=== PATIENT | female | born 1995 | race African-American/Black ===

== ENCOUNTER 2018-05-15 15:17 | Emergency (ER) | payer SELFPAY ==
[2018-05-15 15:26] VITALS: BP 122/68
--- NOTE | 2018-05-15 15:36 | UC ---
Respiratory Complaint HPI - HPI Summary HPI Summary: This patient is a 22 year old F presenting to [facility] [place] with a chief complaint of a white bump on the R side of her tonsil. The patient rates the pain 8/10 in severity. Patient reports body aches starting last night, swollen glands, "feeling cold," and a sore throat. Patient denies cough and any nasal congestion. Patient reports no PMHx. She has a PSHx of a . She smokes but does not drink alcohol or use any other substances. - History of Current Complaint Chief Complaint: UCRespiratory Stated Complaint: SORE THROAT Time Seen by Provider: 05/15/18 15:24 Hx Obtained From: Patient Hx Last Menstrual Period: 04/17/2018 Onset/Duration: Still Present Severity Initially: Severe Severity Currently: Severe Pain Intensity: 8 Pain Scale Used: 0-10 Numeric - Allergies/Home Medications Allergies/Adverse Reactions: Allergies Allergy/AdvReac Type Severity Reaction Status Date / Time Penicillins Allergy Hives Verified 05/15/18 15:22 Home Medications: Home Medications Ibuprofen [Motrin Ib] 400 mg PO Q6HR PRN 05/15/18 [History Confirmed 05/15/18] PMH/Surg Hx/FS Hx/Imm Hx Endocrine History: Diabetes - Denies diabetes Cardiovascular History: Cardiac Disease - Denies CAD - Surgical History Surgical History: Yes Surgery Procedure, Year, and Place: c section x1 - Family History Known Family History: Positive: Hypertension - Social History Occupation: Unemployed Lives: With Family Alcohol Use: None Substance Use Type: None Smoking Status (MU): Current Every Day Smoker Amount Used/How Often: 1/2 ppd Review of Systems Constitutional: Other - Body aches starting last night, "feeling cold" ENT: Sore Throat, Other - Swollen glands. Denies nasal congestion. Respiratory: Cough - Denies cough All Other Systems Reviewed And Are Negative: Yes Physical Exam - Summary Physical Exam Summary: VITAL SIGNS: Reviewed. GENERAL: Patient is a well-developed and nourished FEMALE who is lying comfortable in the stretcher. Patient is not in any acute respiratory distress. HEAD AND FACE: Normocephalic EYES: PERRLA, EOMI x 2. EARS: Hearing grossly intact. MOUTH: Oropharynx within normal limits. Tonsillar Erythema. Swollen tonsil with white discharge NECK: Supple, trachea is midline, no adenopathy, no JVD, no carotid bruit. CHEST: Symmetric, no tenderness at palpation LUNGS: Clear to auscultation bilaterally. No wheezing or crackles. CVS: Regular rate and rhythm, S1 and S2 present, no murmurs or gallops appreciated. ABDOMEN: Soft, non-tender. Bowel sounds are normal. No abdominal abnormal pulsations. EXTREMITIES: Full ROM in all major joints, no edema, no cyanosis or clubbing. NEURO: Alert and oriented x 3. No acute neurological deficits. Speech is normal and follows commands. SKIN: Dry and warm Triage Information Reviewed: Yes Vital Signs: Initial Vital Signs Temp 99.1 F 05/15/18 15:20 Pulse 85 05/15/18 15:20 Resp 18 05/15/18 15:20 BP 122/68 05/15/18 15:20 Pulse Ox 98 05/15/18 15:20 Vital Signs Reviewed: Yes Diagnostic Evaluation - Laboratory O2 Sat by Pulse Oximetry: 98 Respiratory Course/Dx - Course Course Of Treatment: Patient is a 22-year-old female with chief complaint of sore throat. Rapid strep positive. Patient was given a prescription for azithromycin since the patient is allergic to penicillin. Patient was recommended to go to the ER if the patient develops any difficulty swallowing, swelling of the tongue or lips. Patient understands and agrees. - Differential Dx/Diagnosis Provider Diagnoses: Strep pharyngitis Discharge - Sign-Out/Discharge Documenting (check all that apply): Patient Departure - D/C All imaging exams completed and their final reports reviewed: No Studies - Discharge Plan Condition: Stable Disposition: HOME Prescriptions: Azithromycin TAB* [Zithromax TAB (Z-SUMI) 250 mg #6 tabs] 2 tab PO .TODAY, THEN 1 DAILY #1 sumi Patient Education Materials: Strep Throat (ED) Referrals: [facility] [place] [facility] REFERR[facility] [Outside] No Primary Care Phys,NOPCP [Primary Care Provider] - Additional Instructions: Take medications as instructed and adhere to plan Take Acetaminophen or ibuprofen for pain or fever Increase your fluid intake Return to the or go to the emergency department if symptoms worsen Follow-up with primary care physician in next 2-3 days - Billing Disposition and Condition Condition: STABLE Disposition: Home - Attestation Statements Document Initiated by Scribe: Yes Documenting Scribe: Jose Vasquez Provider For Whom Scribe is Documenting (Include Credential): MD Kaur Bowden Attestation: I, Jose Vasquez, scribed for Carlos Eduardo Montemayor MD on 05/15/18 at 1611. Scribe Documentation Reviewed: Yes Provider Attestation: The documentation as recorded by the scribeJose accurately reflects the service I personally performed and the decisions made by me, Carlos Eduardo Montemayor MD
== END 2018-05-15 15:45 | disposition home or self-care (01) ==
LOC: UCEAST 15:17
DX: J02.0 Streptococcal pharyngitis (principal); Z88.0 Allergy status to penicillin; F17.210 Nicotine dependence, cigarettes, uncomplicated
CPT/HCPCS: 87651; 99212; G0463

== ENCOUNTER 2019-01-28 17:08 | Emergency (ER) | payer SELFPAY ==
[2019-01-28 17:25] VITALS: BP 135/58
--- NOTE | 2019-01-28 17:30 | UC ---
General HPI - HPI Summary HPI Summary: Pleasant 23 yo female presents c/o 4-5 days progressive cough, sinus pressure and congestion. No fever / chills. Has had hx of similar in the past ( bronchitis). No hemoptysis. No sob except with cough. No rash. No sore throat except with cough. No GI / issues. No - History of Current Complaint Chief Complaint: UCRespiratory Stated Complaint: URI Time Seen by Provider: 01/28/19 17:29 Hx Obtained From: Patient Hx Last Menstrual Period: 01/20/19 Pain Intensity: 10 - Allergy/Home Medications Allergies/Adverse Reactions: Allergies Allergy/AdvReac Type Severity Reaction Status Date / Time Penicillins Allergy Hives Verified 01/28/19 17:25 Home Medications: Home Medications Dm/P-Ephed/Acetaminoph/Doxylam [Rafaela Huntington Plus Severe 10-12.5-20-650 mg] 1 pow PO 01/28/19 [History] PMH/Surg Hx/FS Hx/Imm Hx Previously Healthy: Yes - Surgical History Surgical History: Yes Surgery Procedure, Year, and Place: c section x1 - Family History Known Family History: Positive: Hypertension - Social History Alcohol Use: None Substance Use Type: None Smoking Status (MU): Light Every Day Tobacco Smoker Type: Cigarettes Amount Used/How Often: 1/2 ppd Review of Systems All Other Systems Reviewed And Are Negative: Yes Constitutional: Positive: Fatigue Skin: Positive: Negative Eyes: Positive: Negative ENT: Positive: Nasal Discharge, Sinus Congestion Respiratory: Positive: Cough Cardiovascular: Positive: Negative Gastrointestinal: Positive: Negative Genitourinary: Positive: Negative Motor: Positive: Negative Neurovascular: Positive: Negative Musculoskeletal: Positive: Negative Neurological: Positive: Negative Psychological: Positive: Negative Is Patient Immunocompromised?: No Physical Exam Triage Information Reviewed: Yes Appearance: Well-Appearing, Well-Nourished Vital Signs: Initial Vital Signs Temp 96.8 F 01/28/19 17:22 Pulse 68 01/28/19 17:22 Resp 18 01/28/19 17:22 BP 135/58 01/28/19 17:22 Pulse Ox 100 01/28/19 17:22 Vital Signs Reviewed: Yes Eye Exam: Normal ENT: Positive: Pharyngeal erythema - mild post redness, no sores / exudates, Nasal congestion, Nasal drainage, Other - R cerumen impaction full. L TM dull, blas Neck exam: Normal Neck: Positive: Supple, Nontender, No Lymphadenopathy Respiratory Exam: Other - + rhonchorus cough spasmodic. + exp wheeze Respiratory: Positive: No respiratory distress, No accessory muscle use Cardiovascular Exam: Normal Cardiovascular: Positive: RRR, No Murmur, Pulses Normal, Brisk Capillary Refill Abdominal Exam: Normal Abdomen Description: Positive: Nontender Musculoskeletal Exam: Normal Musculoskeletal: Positive: Strength Intact, ROM Intact, No Edema Neurological Exam: Normal - grossly intact Psychological Exam: Normal Skin Exam: Normal - no visible or reported rash Course/Dx - Course Course Of Treatment: Reviewed coa / tx plan. Cerumen cleared by RN. Questions as posed answered to the best of my ability. - Diagnoses Provider Diagnosis: Bronchitis, Cerumen impaction Discharge - Sign-Out/Discharge Documenting (check all that apply): Patient Departure All imaging exams completed and their final reports reviewed: No Studies - Discharge Plan Condition: Stable Disposition: HOME Prescriptions: Albuterol HFA INHALER* [Ventolin HFA Inhaler*] 1 - 2 puff INH Q4H PRN #1 mdi PRN Reason: Wheezing Azithromyxin SUMI (NF) [Z-Sumi (Zithromax) 250 mg tabs #6] 2 tab PO .TODAY, THEN 1 DAILY #6 tab Benzonatate CAP* [Tessalon 100 MG CAP*] 100 mg PO TID PRN #30 cap PRN Reason: Cough Patient Education Materials: Bronchiolitis (ED), How to Stop Smoking (ED), Cerumen Impaction (ED), Upper Respiratory Infection (ED) Referrals: [facility] [place] [facility] [Outside] No Primary Care Phys,NOPCP [Primary Care Provider] - Additional Instructions: Follow up with a primary care phyisican as soon as you are able. Seek medical attention for any worse or new problems. - Billing Disposition and Condition Condition: STABLE Disposition: Home
== END 2019-01-28 17:58 | disposition home or self-care (01) ==
LOC: UCEAST 17:08
DX: J40 Bronchitis, not specified as acute or chronic (principal); H61.21 Impacted cerumen, right ear; Z88.0 Allergy status to penicillin; F17.210 Nicotine dependence, cigarettes, uncomplicated
CPT/HCPCS: 99213; G0463

== ENCOUNTER 2019-02-07 10:43 | Emergency (ER) | payer SELFPAY ==
[2019-02-07 11:17] VITALS: BP 137/74
--- NOTE | 2019-02-07 11:25 | UC ---
Throat Pain/Nasal Darvin HPI - HPI Summary HPI Summary: Patient is a 23-year-old female who presents to the urgent care with chief complaint of sore throat, difficulty swallowing, unable to swallow not even liquids at this time, and she is been drooling. She also reports she is having fevers and not feeling well for the last couple days. Patient has no other complaints. - History of Current Complaint Chief Complaint: UCGeneralIllness Stated Complaint: SORE THROAT Hx Obtained From: Patient Hx Last Menstrual Period: 01/21/19 Pain Intensity: 10 - Allergies/Home Medications Allergies/Adverse Reactions: Allergies Allergy/AdvReac Type Severity Reaction Status Date / Time Penicillins Allergy Hives Verified 02/07/19 12:06 Home Medications: Home Medications Ibuprofen TAB* [Motrin TAB* 400 MG] 400 mg PO Q6H PRN 02/07/19 [History Confirmed 02/07/19] PMH/Surg Hx/FS Hx/Imm Hx Previously Healthy: Yes Respiratory History: Asthma - Surgical History Surgical History: Yes Surgery Procedure, Year, and Place: c section x1 - Family History Known Family History: Positive: Hypertension - Social History Alcohol Use: None Substance Use Type: None Smoking Status (MU): Light Every Day Tobacco Smoker Type: Cigarettes Amount Used/How Often: 1/2 ppd Household Exposure Type: Cigarettes Review of Systems All Other Systems Reviewed And Are Negative: Yes Constitutional: Positive: Fever, Chills Skin: Positive: Negative Eyes: Positive: Negative ENT: Positive: Sore Throat Respiratory: Positive: Negative Cardiovascular: Positive: Negative Gastrointestinal: Positive: Negative Genitourinary: Positive: Negative Motor: Positive: Negative Neurovascular: Positive: Negative Musculoskeletal: Positive: Negative Neurological: Positive: Negative Psychological: Positive: Negative Is Patient Immunocompromised?: No Physical Exam - Summary Physical Exam Summary: Gen.: Patient is an obese female in some distress secondary to drooling and unable to swallow. Patient is sitting comfortably on the stretcher. Head: Normacephalic and atraumatic Eyes: PERRLA, EOMI x2. Ears: Right ear canal and TM WNL and Left ear canal and TM WNL Nose and mouth: Positive pharyngeal erythema and tonsilar swelling with exudate. She is drooling. Neck: Supple, Positive bilateral submandibular and anterior cervical lymphadenopathy. No JVD Lungs: CTA B/L CVS: S1 & S2 present. No murmurs appreciated. ABDOMEN: Soft NT w/ positive BS. EXT: FROM x 4 NEURO: A+O X 3. Triage Information Reviewed: Yes Vital Signs: Initial Vital Signs Temp 99.4 F 02/07/19 11:12 Pulse 99 02/07/19 11:12 Resp 22 02/07/19 11:12 BP 137/74 02/07/19 11:12 Pulse Ox 100 02/07/19 11:12 Throat Pain/Nasal Course/Dx - Course Course Of Treatment: He since that the patient has pharyngitis and tonsillitis. Blood pulses are very swollen and the airways is slightly compromise. The patient is drooling and unable to swallow. Therefore we obtained an IV access in the urgent care IV fluids were given and decadron and the patient will be transferred to the emergency department via ambulance. Rapid strep is positive. - Differential Dx/Diagnosis Provider Diagnosis: Strep pharyngitis Discharge - Sign-Out/Discharge Documenting (check all that apply): Patient Departure All imaging exams completed and their final reports reviewed: No Studies - Discharge Plan Condition: Stable Disposition: TRANS HIGHER LVL OF CARE FAC Patient Education Materials: Pharyngitis (ED) Referrals: No Primary Care Phys,NOPCP [Primary Care Provider] - - Billing Disposition and Condition Condition: STABLE Disposition: Trans Higher Lvl of Care Fac
[2019-02-07] MEDS ORDERED: Dexamethasone IV* 4 MG/ML 1 ML (4 MG) IV SLOW PU ONE (11:31)
== END 2019-02-07 11:45 | disposition short-term general hospital (02) ==
LOC: UCEAST 10:43
DX: J02.0 Streptococcal pharyngitis (principal); Z88.0 Allergy status to penicillin; F17.210 Nicotine dependence, cigarettes, uncomplicated
CPT/HCPCS: 87651; 96374; 99213; G0463; J1100

== ENCOUNTER 2020-01-09 08:25 | Emergency (ER) | payer SELFPAY ==
[2020-01-09 09:45] VITALS: BP 123/77
== END 2020-01-09 10:02 | disposition left against medical advice (07) ==
LOC: UCEAST 08:25
DX: J34.89 Other specified disorders of nose and nasal sinuses (principal); Z53.21 Procedure and treatment not carried out due to patient leaving prior to being seen by health care provider

== ENCOUNTER 2021-09-22 05:26 | Inpatient (IN) ==
[2021-09-22 06:41] LABS: Urine Benzodiazepine Screen None Detected (None Detect); Urine Cannabinoids Screen None Detected (None Detect); Urine Opiates Screen None Detected (None Detect)
[2021-09-22] MEDS ORDERED: Buffered Lidocaine 1% SYRIN 1 ml INTRADERM ONE (07:16)
[2021-09-22] MEDS ORDERED: Lactated Ringers 1000 ml BAG 1,000 ML IV ONE (07:16)
[2021-09-22] MEDS ORDERED: ceFOXitin 2 GM IVPREMIX 2 GM/50 ML BAG IVPB ONE (07:16)
[2021-09-22] MEDS ORDERED: Albuterol HFA INHALER 8 gm MDI INH PRN (07:23)
[2021-09-22] MEDS ORDERED: Lactated Ringers 1000 ml BAG 1,000 ML IV SCH ×2 (08:00→11:00)
[2021-09-22 08:01] LABS: ABS Basophils 0.1 10^3/ul (0-0.2); ABS Eosinophils 0.1 10^3/ul (0-0.6); ABS Lymphocytes 2.4 10^3/ul (1.0-4.8); ABS Monocytes 0.8 10^3/ul (0-0.8); ABS Neutrophils 8.3 10^3/ul (1.5-7.7); Eosinophil % 1.3 %; Hematocrit 37 % (35-47); Hemoglobin 12.7 g/dL (12.0-16.0); Lymphocyte % 20.6 %; Mean Corpuscular HGB Conc 35 g/dL (31-36); Mean Corpuscular Hemoglobin 30 pg (27-31); Mean Corpuscular Volume 86 fL (80-97); Mean Platelet Volume 8.4 fL (7.4-10.4); Platelet Count 451 10^3/uL (150-450); Red Blood Count 4.24 10^6 /uL (3.70-4.87); Red Cell Distribution Width 13 % (10-15); White Blood Count 11.8 10^3/uL (3.5-10.8)
[2021-09-22] MEDS ORDERED: Bupivacaine-MPF SPINAL 7.5 MG/ML - 2ML AMP ONE (08:13)
[2021-09-22] MEDS ORDERED: Ondansetron 4 mg VIAL 2 MG/ML 2 ml VIAL ONE (08:13)
[2021-09-22] MEDS ORDERED: Morphine PF AMP (0.5MG/ML) 5 MG/10 ML AMP ONE (08:13)
[2021-09-22] MEDS ORDERED: Oxytocin 10 UNITS/ML 1 ML VIAL ONE (08:13)
[2021-09-22] MEDS ORDERED: fentaNYL 100 mcg/2 ml 50 MCG/ML VIAL ONE (08:13)
[2021-09-22 08:18] LABS: Albumin 3.5 g/dL (3.2-5.2); Albumin/Globulin Ratio 1.1 (1-3); Globulin 3.1 g/dL (2-4); Potassium 3.8 mmol/L (3.5-5.0); Total Bilirubin 0.4 mg/dL (0.2-1.0); Total Protein 6.6 g/dL (6.4-8.9); eGFR CKD-EPI 118.7 (>60)
[2021-09-22] MEDS ORDERED: Sodium Citrate/Citric Acid LIQ 15 ML UDC PO ONE (08:33)
[2021-09-22] MEDS ORDERED: Naloxone 0.4 mg VIAL 0.4 mg/ml 1 ml VIAL IV PRN ×2 (10:28→10:32)
[2021-09-22] MEDS ORDERED: Ondansetron 4 mg VIAL 2 MG/ML 2 ml VIAL IV PRN (10:28)
[2021-09-22] MEDS ORDERED: diPHENhydraMINE IV 50 MG/ML 1 ml VIAL (BENADRYL) IV PRN (10:28)
[2021-09-22] MEDS ORDERED: DiMENhydriNATE IV 50 mg/ml 1 ml VIAL IV PUSH PRN (10:32)
[2021-09-22] MEDS ORDERED: Acetaminophen IV 1 GM/100ML 100 ML IV ONE (10:32)
[2021-09-22] MEDS ORDERED: HYDROmorphone 1 MG/1 ML SYRINGE IV PRN (10:32)
[2021-09-22] MEDS ORDERED: Dibucaine 1% OINT 28.35 GM TUBE PR PRN (10:43)
[2021-09-22] MEDS ORDERED: Witch Hazel PAD JAR TOPICAL PRN (10:43)
[2021-09-22] MEDS ORDERED: Glycerin ADULT 2.4 gm SUPP PR PRN (10:43)
[2021-09-22] MEDS ORDERED: Oxytocin in LR 20 UNITS/1,000 ML BAG IVPB SCH (11:00)
[2021-09-22 12:31] LABS: Urine Benzodiazepine Screen None Detected (None Detect); Urine Cannabinoids Screen None Detected (None Detect); Urine Opiates Screen None Detected (None Detect)
[2021-09-23 07:30] LABS: ABS Eosinophils 0.2 10^3/ul (0-0.6); ABS Lymphocytes 2.1 10^3/ul (1.0-4.8); ABS Monocytes 0.7 10^3/ul (0-0.8); Hematocrit 32 % (35-47); Hemoglobin 10.9 g/dL (12.0-16.0); Mean Corpuscular HGB Conc 35 g/dL (31-36); Mean Corpuscular Hemoglobin 30 pg (27-31); Mean Corpuscular Volume 87 fL (80-97); Mean Platelet Volume 8.3 fL (7.4-10.4); Platelet Count 383 10^3/uL (150-450); Red Blood Count 3.62 10^6 /uL (3.70-4.87); Red Cell Distribution Width 13 % (10-15)
[2021-09-23] MEDS: Nicotine PATCH 7 MG/24 HR PATCH TRANSDERM SCH (10:20)
[2021-09-24 08:19] VITALS: BP 115/57
[2021-09-24] MEDS: Nicotine PATCH 7 MG/24 HR PATCH TRANSDERM SCH (11:34)
[2021-09-24] MEDS ORDERED: medroxyPROGESTERone ACETATE 150 MG/ML VIAL IM ONE (13:51)
== END 2021-09-24 16:10 | disposition home or self-care (01) | DRG 540 ==
LOC: MCHOBOUT 05:26 → MCHOB 06:39
PROVIDERS: ADMIT Obstetrics & Gynecology; ATTEND Obstetrics & Gynecology

== ENCOUNTER 2023-11-30 11:23 | Inpatient (IN) ==
[2023-11-30] MEDS ORDERED: Buffered Lidocaine 1% SYRIN 1 ml INTRADERM ONE (11:44)
[2023-11-30] MEDS ORDERED: Dexamethasone IV 4 MG/ML VIAL 1 ml VIAL ONE (11:58)
[2023-11-30] MEDS ORDERED: Ondansetron 4 mg VIAL 2 MG/ML 2 ml VIAL ONE (11:58)
[2023-11-30] MEDS ORDERED: Oxytocin 10 UNITS/ML 1 ML VIAL ONE (11:58)
[2023-11-30] MEDS ORDERED: Morphine PF AMP (0.5MG/ML) 5 MG/10 ML AMP ONE (11:58)
[2023-11-30] MEDS: Sodium Citrate/Citric Acid LIQ 15 ML UDC PO ONE (12:00)
[2023-11-30] MEDS ORDERED: Ondansetron 4 mg VIAL 2 MG/ML 2 ml VIAL IV PRN (12:06)
[2023-11-30] MEDS ORDERED: Acetaminophen IV 1 GM/100ML 1,000 MG/100 ML BAG IV PRN (12:06)
[2023-11-30] MEDS ORDERED: Naloxone 0.4 mg VIAL 0.4 mg/ml 1 ml VIAL IV PUSH PRN (12:06)
[2023-11-30] MEDS ORDERED: Metoclopramide 5 MG/ML VIAL (10 mg) IV PRN (12:06)
[2023-11-30 12:11] LABS: Hemoglobin 13.3 g/dL (11.5-14.3); Mean Corpuscular Hemoglobin 27.4 pg (27-33); Mean Corpuscular Hgb Conc 33.3 g/dL (31-36); Mean Corpuscular Volume 82.5 fL (80-97); Mean Platelet Volume 7.9 fL (7.5-11.2); Platelet Count 453 10^3/uL (150-450); Red Blood Count 4.85 10^6/uL (3.63-4.92); Red Cell Distribution Width 16.5 % (12-17)
[2023-11-30 12:20] LABS: ABS Basophils 0.2 10^3/uL (0.0-0.1); ABS Eosinophils 0.1 10^3/uL (0.0-0.5); ABS Lymphocytes 2.4 10^3/uL (1.0-4.8); ABS Monocytes 0.9 10^3/uL (0.0-0.9); ABS Neutrophils 11.5 10^3/uL (1.5-7.6); Lymphocyte % 15.7 %
[2023-11-30] MEDS ORDERED: fentaNYL 100 mcg/2 ml 50 MCG/ML VIAL ONE (12:33)
[2023-11-30] MEDS ORDERED: Midazolam 2 mg/2 ml VIAL 1 mg/ml 2 ml VIAL (2 mg) ONE (12:38)
[2023-11-30] MEDS ORDERED: KETAMINE HCL 10 MG/ML 20 ml VIAL (200 MG) ONE (12:56)
[2023-11-30] MEDS ORDERED: Midazolam 5 mg/5 ml VIAL 1 mg/ml 5 ml VIAL (5 mg) ONE (13:02)
[2023-11-30 13:52] LABS: Urine Appearance Clear; Urine Bilirubin Negative (Negative); Urine Blood Trace (Negative); Urine Color Yellow; Urine Glucose Negative (Negative); Urine Ketones Negative (Negative); Urine Nitrite Negative (Negative); Urine Protein 2+ (>=100 mg/dL) (Negative); Urine Specific Gravity 1.027 (1.002-1.030); Urine Urobilinogen 1+ (Negative); Urine pH 6.5 (5.0-8.0)
[2023-11-30 14:01] LABS: Urine Bacteria Absent /HPF (Absent); Urine Red Blood Cell 3+(>10/hpf) /HPF (0-Trace); Urine Squamous Epithelial Cell Present /HPF (Absent); Urine White Blood Cell Trace(0-5/hpf) /HPF (0-Trace)
[2023-11-30] MEDS ORDERED: Witch Hazel PAD JAR TOPICAL PRN (14:03)
[2023-11-30] MEDS ORDERED: Glycerin ADULT 2.4 gm SUPP PR PRN (14:03)
[2023-11-30] MEDS ORDERED: Dibucaine 1% OINT 28.35 GM TUBE PR PRN (14:03)
[2023-11-30 14:25] LABS: Urine Benzodiazepine Screen None Detected (None Detect); Urine Cannabinoids Screen None Detected (None Detect); Urine Opiates Screen None Detected (None Detect)
[2023-11-30] MEDS ORDERED: Lactated Ringers 1000 ml BAG 1,000 ML IV SCH (15:00)
[2023-11-30] MEDS: ceFOXitin 2 GM IVPREMIX 2 GM/50 ML BAG IVPB ONE (16:42)
[2023-11-30] MEDS: Oxytocin in LR 20,000 MILLI.UNIT/1,000 ML BAG IV SCH (20:09)
[2023-11-30] MEDS: Lactated Ringers 1000 ml BAG 1,000 ML IV SCH (20:09)
[2023-11-30] MEDS: Lactated Ringers 1000 ml BAG 1,000 ML IV ONE (20:09)
[2023-12-01 12:13] VITALS: BP 133/65
[2023-12-01] MEDS: medroxyPROGESTERone ACETATE 150 MG/ML VIAL IM ONE (18:00)
== END 2023-12-01 18:24 | disposition left against medical advice (07) | DRG 540 ==
LOC: MCHOBOUT 11:23 → MCHOB 11:35
PROVIDERS: ADMIT Obstetrics & Gynecology; ATTEND Obstetrics & Gynecology